=== PATIENT | male | born 1965 | race Caucasian/White ===

== ENCOUNTER 2017-04-08 05:14 | Day surgery (SDC) | payer BC ==
[2017-04-01 20:25] LABS: HEMOGLOBIN 14.3 g/dL (13.6-17.8)
[2017-04-01 20:29] LABS: HEMATOCRIT 41.7 % (40.0-51.0)
--- NOTE | ~2017-04-08 | OP ---
Record Of Operation [facility] [address] [place]. [address] NAME: MABEL WELLS : 69 STATUS : [facility]#: [id number] AGE: 52 ADM/REG DATE : 04/08/17 MR#: [id number] REPORT SERV DATE: 04/10/17 DICTATED BY: HUEY ARNDT II DATE: 04/10/17 REPORT STATUS : Draft TRANSCRIBED BY: MODL DATE: 04/10/17 DATE OF PROCEDURE: 04/08/2017 PREOPERATIVE DIAGNOSES: 1. Right upper extremity radiculopathy. 2. C4-5, C5-6 stenosis with degenerative disk disease. POSTOPERATIVE DIAGNOSES: 1. Right upper extremity radiculopathy. 2. C4-5, C5-6 stenosis with degenerative disk disease. PROCEDURES: 1. C4-5, C5-6 anterior interbody arthrodesis. 2. Application of prosthetic devices, C4-5, C5-6. 3. Anterior instrumentation, C4-5, C5-6. 4. Use of allograft substitute and bone marrow aspirate. 5. Use of the microscope. SURGEON: uHey Arndt M.D. FLUIDS: 1600 mL LR. ESTIMATED BLOOD LOSS: 40 mL. DRAINS: None. COMPLICATIONS: None. ANTIBIOTIC: Preoperatively. PREOPERATIVE HISTORY: This is a very friendly middle-age gentleman, well known to me from the past. He did well with lumbar surgery. We discussed the pros and cons on continuing on care versus surgery, and he wished to proceed. We discussed the fact that he would likely end up with some degeneration occurred at C6-7, which could require surgery down the road. DESCRIPTION OF PROCEDURE: After informed consent was obtained, the patient was brought to the operating room at his request and general anesthesia achieved. He was placed in the supine position and the neck and iliac crest were prepped and draped in a sterile fashion. 5 mL of bone marrow were aspirated from the right iliac crest, followed by a right-sided longitudinal incision. The interval was explored. The deep cervical fascia was incised. The subperiosteal exposure was completed, and the wheel and pinion inspector retractors placed. After the [place] pins were placed, gentle distraction was performed at C4-5. The diskectomy was completed with the pituitary rongeurs, [place] rongeurs, and the curettes. With the microscope in place, the posterior foraminal osteophytes were removed including the posterior vertebral body osteophytes and the posterior longitudinal ligament. The anterior canal and foramen were well decompressed. There was specifically a moderate amount of Record Of Operation [facility] [address] [place]. [address] NAME: MABEL WELLS : 69 STATUS : [facility]#: [id number] AGE: 52 ADM/REG DATE : 04/08/17 MR#: [id number] REPORT SERV DATE: 04/10/17 DICTATED BY: HUEY ARNDT II DATE: 04/10/17 REPORT STATUS : Draft TRANSCRIBED BY: MODL DATE: 04/10/17 foraminal compression on the C5 nerve root. This was alleviated. Next, the prosthetic device was placed at the C4-5. This contained allograft substitute and bone marrow aspirate. Excellent fit was obtained. Next, the C5-6 level was addressed in a similar manner with diskectomy and endplate preparation. The foraminal osteophytes were removed including the posterior longitudinal ligament. The canal and foramen were well decompressed followed by placement of the prosthetic device. The prosthetic device was then well placed, followed by removal of the [place] pins. Next, the anterior fixation device was placed with two screws in the C4, C5, and C6. Multiplanar imaging confirmed acceptable placement of the implants. Please note, this was a separate plate and screw construct. The area was now found to be hemostatic and standard closure performed. He was transferred to phase 2 recovery following approximately two hours in the recovery room. He was comfortable and stable. I saw him in the phase 2 area, he was still wanting greatly to go home. Again, he had been offered overnight observation. He wished to go home. I felt that after the amount of observation and the fact that his neck was very soft and supple and the fact that he was awake, alert, and oriented, that it was reasonable to go home, but to return if there are any problems or difficulty breathing. JUAN DAVID/PATO Huey Arndt II, M.D. / [id number] CC: Bismark Shepherd II, PAUL DANIEL
[~2017-04-08 05:14] MED LIST: BACLOFEN20 MG PO; NEUR300 PO; PERCOCET 10/3251 TAB PO
== END 2017-04-08 16:43 | disposition home or self-care (01) ==
LOC: SDC 05:14
PROVIDERS: Orthopaedic Surgery
PROC: 0RG20A0 Fusion of 2 or more Cervical Vertebral Joints with Interbody Fusion Device, Anterior Approach, Anterior Column, Open Approach (ICD-10-PCS; principal; 2017-04-08 06:45)
DX: M50.121 Cervical disc disorder at C4-C5 level with radiculopathy (principal); M50.122 Cervical disc disorder at C5-C6 level with radiculopathy; F32.9 Major depressive disorder, single episode, unspecified; K21.9 Gastro-esophageal reflux disease without esophagitis; H91.90 Unspecified hearing loss, unspecified ear; Z79.2 Long term (current) use of antibiotics; Z79.891 Long term (current) use of opiate analgesic; Z90.89 Acquired absence of other organs
CPT/HCPCS: 36415; 82962; 85014; 85018; 87641; 88304; 88311; 93005; A9270-GY; C1713; J0690; J2250; J2405; J2710; J3010